=== PATIENT | male | born 1990 | race Caucasian/White ===

== ENCOUNTER 2016-11-21 11:22 | Emergency (ER) | payer BC, OTHER ==
[2016-11-21 11:29] VITALS: RESP 16
--- NOTE | 2016-11-21 12:47 | EDPHY ---
H & P Stated Complaint: left shoulder injury Source: Patient Exam Limitations: No limitations - Personal History Current Tetanus Diphtheria and Acellular Pertussis (TDAP): No - Medical/Surgical History Hx Asthma: No Hx Chronic Respiratory Disease: Yes Hx Diabetes: No Hx Cardiac Disease: No Hx Renal Disease: No Hx Cirrhosis: No Hx Alcoholism: No Hx HIV/AIDS: No Hx Splenectomy or Spleen Trauma: No Other PMH: Had bronchits once a year when younger in [place]. Left floating rib , - Social History Smoking Status: Former smoker Time Seen by Provider: 11/21/16 11:40 HPI/ROS: CHIEF COMPLAINT: Left shoulder pain, left-sided chest pain HISTORY OF PRESENT ILLNESS: 25-year-old male presents to the emergency department complaining of continued left shoulder pain and left-sided anterior chest pain. Patient works at [employer], fell onto his left shoulder 1 week ago, was seen by worker's compensation and had an x-ray, he is pending an MRI. Yesterday he was helping a kid onto the ski lift, he tripped and fell backwards onto the kid. He reports this caused worsening left shoulder pain and he woke up this morning with left-sided anterior chest pain just to the left of sternum. He denies shortness of breath, dizziness, fevers, no numbness or tingling in his arms, no other complaints. Patient reports pain is worse with movement, worse with palpation and worse with deep breath. REVIEW OF SYSTEMS: A comprehensive 10 point review of systems is otherwise negative aside from elements mentioned in the history of present illness. (Josephine Tan) - Physical Exam Exam: Physical Exam Gen: Alert and Oriented, NAD HEENT: PERRL, moist mucous membranes NECK: no C-spine tenderness CV: regular rate and regular rhythm Chest: Left-sided sternal tenderness to palpation, 8 cm x 4 cm area of ecchymosis over left clavicle PULM: CTAB, no wheezes ABDOMEN: soft, non tender to palpation, BS present BACK: No CVA tenderness NEURO: Neurologically grossly intact EXTREMITIES: Left shoulder with diffuse tenderness to palpation, decreased range of motion, no obvious deformity, no swelling, 2+ radial pulses, sensation intact to light touch. SKIN: no rash or break in skin on exposed skin PSYCH: answers questions appropriately. (Josephine Tan) Constitutional: Initial Vital Signs Temperature (C) 36.4 C 11/21/16 11:23 Heart Rate 85 11/21/16 11:23 Respiratory Rate 16 11/21/16 11:23 Blood Pressure 139/88 H 11/21/16 11:23 O2 Sat (%) 95 11/21/16 11:23 O2 Delivery Mode Room Air Allergies/Adverse Reactions: No Known Allergies Allergy (Verified 10/22/16 22:23) Home Medications: Medication Instructions Recorded Miscellaneous Medical Supply [NO 1 ea MISC AD 11/13/12 HOME MEDS] Hydrocodone/APAP 5/325 [Karnack 1 - 2 tab PO Q4H PRN #10 tab 10/22/16 5/325] Lexapro 10/22/16 Xanax 10/22/16 Hydrocodone/APAP 5/325 [[place] 1 tab PO Q4H PRN #14 tab 11/21/16 5/325] Medical Decision Making - Diagnostics Imaging: Chest x-ray independently reviewed by me- Findings: There is no rib fracture appreciated. The cardiac and mediastinal silhouette is normal. There is no focal infiltrate, atelectasis, pleural effusion or hematoma, or pneumothorax. The trachea is midline. Impression: Negative. Dictated By: Avelino Currie MD (Josephine Tan) Other Provider: The patient was evaluated and managed by the Physician Vending Machine Technician/ Nurse Practitioner. My co-signature indicates that I have reviewed this chart and I agree with the findings and plan of care as documented. I am the secondary supervising physician. (Elsa Abrams) Departure - Departure Disposition: Home, Routine, Self-Care Clinical Impression: Costochondritis, acute Condition: Good Instructions: Costochondritis (ED) Additional Instructions: Rest, ice, take 600mg of ibuprofen every 8 hours with food for 3-5 days as needed for pain and swelling. Use incentive spirometer every hour while awake. Return to the emergency department for any fevers, cough. Referrals: NONE *PRIMARY CARE P,. [Primary Care Provider] - As per Instructions Stand Alone Forms: Work Comp Follow Up Prescriptions: Hydrocodone/APAP 5/325 [Karnack 5/325] 1 tab PO Q4H PRN #14 tab PRN Reason: Pain, Moderate
--- NOTE | 2016-11-21 13:56 | DX ---
Left Rib Series with PA Upright View of the Chest, 3 Views Total, 12:25 p.m. Clinical History: 25-year-old male with generalized left-sided rib pain after a fall one week ago, wi th some shortness of breath today. Comparison Study: Chest dated April 17, 2014. Findings: There is no rib fracture appreciated. The cardiac and mediastinal silhouette is normal. The re is no focal infiltrate, atelectasis, pleural effusion or hematoma, or pneumothorax. The trachea is midline. Impression: Negative.
[2016-11-21 14:16] VITALS: BP 132/95; PULSE 81; TEMP 98.1; O2SAT 93
== END 2016-11-21 14:25 | disposition home or self-care (01) ==
DX: M94.0 Chondrocostal junction syndrome [Tietze] (principal); Z87.891 Personal history of nicotine dependence; W01.0XXA Fall on same level from slipping, tripping and stumbling without subsequent striking against object, initial encounter; Y99.8 Other external cause status; Y93.89 Activity, other specified